=== PATIENT | female | born 1960 | race Caucasian/White ===

== ENCOUNTER 2024-11-16 12:27 | Emergency (ER) | payer MEDICARE ==
[~2024-11-16] VITALS: Ht 160 cm; Wt 57.2 kg
[~2024-11-16 12:27] MED LIST: 'KLONOPIN0.5 MG PO; BUPROPION HYDR100 M3 PO; BUPROPION HYDR100 MG PO; CALCIUM-VITAMI1 EAC2 PO; LUMIGAN50 DRP OPH; MIRTAZAPINE15 M2 PO; SERTRALINE HCL200 MG PO; TIMOLOL 5 ML5 ML OPH; [UNRECOGNIZED DRUG - OTHER] PO
[2024-11-16 13:30] LABS: BASO % 0.2 % (0.0-1.0); HEMATOCRIT 42.7 % (37.0-47.0); MEAN CELL VOLUME 88.4 fl (81.0-99.0); MEAN CORPUSCULAR HGB 29.4 pg (27.0-31.0); MEAN CORPUSCULAR HGB CONC 33.3 g/dl (33.0-37.0); MEAN PLATELET VOLUME 11.1 fl (9.6-12.3); MONO # 0.7 10*3/uL (0.1-1.0); MONO % 13.8 % (3.0-9.0); NEUT # 3.7 10*3/uL (2.3-7.9); NEUT % 70.1 % (47.0-73.0); PLATELET COUNT AUTOMATED 242 10*3/uL (130-400); RED BLOOD COUNT 4.83 10*6/uL (4.10-5.10); RED CELL DISTRI WIDTH 12.2 % (0-14.5); WHITE BLOOD COUNT 5.2 10*3/uL (4.8-10.8)
[2024-11-16 13:37] LABS: BILIRUBIN Negative (Negative); BLOOD Negative (Negative); CLARITY Clear (Clear); COLOR Yellow (Yellow); GLUCOSE Negative (Negative); KETONE 1+ (Negative); LEUKO ESTERASE Negative (Negative); NITRITE Negative (Negative); UROBILINOGEN 0.2 E.U./dl (0.0-1.0)
[2024-11-16 13:44] LABS: BACTERIA TRACE; EPITHELIAL CELLS 0-2; URINE AMPHETAMINES Negative (1000ng/ml); URINE BARBITURATES Negative (200ng/ml); URINE BENZODIAZEPINES Negative (200ng/ml); URINE CANNABINOIDS (THC) Negative (50ng/ml); URINE COCAINE Negative (300ng/ml); URINE METHADONE Negative (300ng/ml); URINE OPIATES Negative (300ng/ml); URINE PHENCYCLIDINE Negative (25ng/ml); WBC 0-2 wbc/hpf (0-5)
[2024-11-16 13:54] LABS: ALKALINE PHOSPHATASE 66 U/L (46-116); BUN 7 mg/dl (9-23); CHLORIDE 106 mmol/L (98-107); POTASSIUM 3.9 mmol/L (3.4-5.1); SGPT/ALT 34 U/L (5-49); TOTAL PROTEIN 7.3 gm/dL (6.0-8.0)
[2024-11-16 13:55] LABS: ETHYL ALCOHOL < 3.0 mg/dl (<3)
[2024-11-16] MEDS ORDERED: hydrOXYzine pamoate 25 MG CAP PO ONE (17:15)
[2024-11-16] MEDS ORDERED: VISTARIL25 MG PO (17:15)
== END 2024-11-16 17:25 | disposition home or self-care (01) ==
LOC: ED 12:27
PROVIDERS: Internal Medicine
DX: F41.9 Anxiety disorder, unspecified (principal); F32.A Depression, unspecified; Z88.2 Allergy status to sulfonamides; Z90.710 Acquired absence of both cervix and uterus; Z98.890 Other specified postprocedural states; Z79.899 Other long term (current) drug therapy